=== PATIENT | male | born 1955 | race Caucasian/White ===

== ENCOUNTER 2024-08-31 09:53 | Outpatient (CLI) | payer MEDICARE ==
[2024-08-31 11:20] LABS: #Basophils 0.06 10x3/uL (0.0-0.2); #Eosinophils 0.13 10x3/uL (0.0-0.7); #Monocytes 0.61 10x3/uL (0.11-0.59); #Neutrophils 4.63 10x3/uL (1.40-6.50); %Basophils 0.7 % (0.0-1.0); %Eosinophils 1.5 % (0.0-10.0); %Lymphocytes 36.8 % (21.0-51.0); %Monocytes 7.1 % (0.0-10.0); %Neutrophils 53.6 % (42.0-75.0); Hematocrit 45.0 % (42.0-52.0); Hemoglobin 15.1 g/dL (14.0-18.0); Mean Corpuscular Hemoglobin 30.8 pg (27.0-31.0); Mean Corpuscular Volume 91.8 fL (78.0-98.0); Platelet Count 270 10x3/uL (130-400); Red Blood Cell (RBC) Count 4.90 mill/uL (4.70-6.10); White Blood Cell (WBC) Count 8.64 10x3/uL (4.8-10.8)
[2024-08-31 11:33] LABS: INR-International Normal Ratio 1.0; Prothrombin Time 13.0 sec (12.0-14.7)
[2024-08-31 11:37] LABS: Anion Gap 13 mmol/L (10-20); BUN (Urea Nitrogen) 22 mg/dL (8.4-25.7); Calc. Creatinine Clearance 0 mL/min (70-130); Calcium 9.2 mg/dL (7.8-10.44); Carbon Dioxide 24 mmol/L (23-31); Chloride 105 mmol/L (98-107); Glucose 105 mg/dL (80-115); Potassium 4.1 mmol/L (3.5-5.1); Sodium 138 mmol/L (136-145)
[2024-08-31 14:21] LABS: Bacteria/HPF None Seen HPF (None Seen); Glucose, Urine (Dipstick) Normal (Negative); Leukocyte Negative Leu/uL (Negative); Protein, Urine (Dipstick) Negative (Neg-Trace); RBC/HPF 0-3 HPF (0-3); Specific Gravity, Urine 1.020 (1.002-1.036); WBC/HPF 0-3 HPF (0-3)
== END 2024-08-31 09:54 | disposition home or self-care (01) ==
LOC: LABBT 09:53
PROVIDERS: ATTEND Orthopaedic Surgery
DX: Z01.818 Encounter for other preprocedural examination (principal); M17.11 Unilateral primary osteoarthritis, right knee
CPT/HCPCS: 71046; 80048; 81001; 85025; 85610; 87081; 93005; 93010

== ENCOUNTER 2024-08-31 10:33 | Outpatient (CLI) | payer MEDICARE | END 2024-08-31 10:34 | disposition home or self-care (01) | LOC: CT 10:33 | PROVIDERS: ATTEND Orthopaedic Surgery | DX: M17.11 Unilateral primary osteoarthritis, right knee (principal) ==

== ENCOUNTER 2024-10-26 11:39 | Outpatient (CLI) | payer MEDICARE | END 2024-10-26 11:40 | disposition home or self-care (01) | LOC: SCSRAD 11:39 | PROVIDERS: ATTEND Family Medicine | DX: M25.511 Pain in right shoulder (principal) ==